=== PATIENT | male | born 1980 | race Caucasian/White ===

== ENCOUNTER 2019-02-18 16:20 | Emergency (ER) | payer OTHER, SELFPAY ==
[2019-02-18 16:24] VITALS: BP 152/86; PULSE 67; RESP 16; TEMP 36.8; O2SAT 97
--- NOTE | 2019-02-18 16:36 | W.ED.GENAD ---
Discharge Plan Disposition Patient Disposition: HOME Condition: Stable Discharge Details Chief Complaint: Laceration Clinical Impression: Laceration of left middle finger Primary Care Provider: None,None ED Provider: Chidi Ulloa Home Meds and New Rx's Prescriptions: No Action No Known Home Meds RF: 0 Discharge Instructions Instructions: Skin Adhesive Care (ED) Additional Instructions: if redness spreads down the finger or you have yellow/white discharge from the wound return to the emergency department Medical Decision Making 38 yo male comes in with left middle finger laceration. He was at work and accidentally cut his left middle finger with a knife, no falls or loc. He has an avulsion of the distal left anterior middle finger that is about 2cm long, no bone exposure. sensation intact with full rom. I placed a finger tourniquet on and cleaned the wound and was able to tac the skin avulsion down with skin adhesive. Will d/c, return precautions given Differential Diagnosis lac, avulsion HPI General Mode of arrival: ambulatory. Date/Time Provider Initiated Documentation: 02/18/19 16:21. Limitations to Documentation: no limitations. Information obtained by: patient. History of Present Illness 38 year old M presents to the emergency department with the chief complaint of left middle finger laceration, described as mild, Quality is described as aching, Patient started experiencing this hour(s) (1) and it has been constant. No relieving factors improve symptom(s), No exacerbating factors reported . Patient notes no other symptoms.. Patient did receive the following treatments prior to arrival, none Related Data Home Medications Medication Instructions Recorded Confirmed Unknown [No Known Home Meds] 06/01/13 06/01/13 Allergies Allergy/AdvReac Type Severity Reaction Status Date / Time No Known Allergies Allergy Unverified 06/01/13 15:54 General Stated Complaint: Laceration SCOOBY: 4 Review of Systems Review of Systems All systems reviewed & are unremarkable except as noted in HPI and below Constitutional Denies weakness Cardiovascular Denies chest pain and Denies dyspnea Respiratory Denies dyspnea Gastrointestinal Denies abdominal pain, Denies nausea and Denies vomiting Neurologic Denies weakness PFSH Social History Smoking/Tobacco Use Status: Former Tobacco Use Drug use: Never Do you feel safe at home: Yes Exam Const General: no acute distress Orientation: alert HENMT Head: normal to inspection Ears: external ears normal General nose exam: external nose normal Mouth: moist mucous membranes Eyes General: appearance normal, both eyes and all related structures Neck Neck: normal visual inspection Resp Effort & Inspection: normal respiratory effort and able to speak in complete sentences Cardio Rate: regular rate Skin General skin exam: no rashes or lesions noted Neuro General: alert and oriented x3 Extrem General: full ROM and normal capillary refill Psych Mental Status: mental status grossly normal Course Vital Signs Temperature 36.8 C 02/18/19 16:24 Pulse 67 02/18/19 16:24 Respiratory Rate 16 02/18/19 16:24 Blood Pressure 152/86 H 02/18/19 16:24 Pulse Oximetry 97 02/18/19 16:24 Temperature 36.8 C 02/18/19 16:24 Temperature Source Temporal Artery Scan 02/18/19 16:24 Pulse 67 02/18/19 16:24 Respiratory Rate 16 02/18/19 16:24 Respiratory Effort Non-Labored 02/18/19 16:30 Blood Pressure 152/86 H 02/18/19 16:24 Blood Pressure Position Supine 02/18/19 16:24 Pulse Oximetry 97 02/18/19 16:24 Oxygen Delivery Method Room Air 02/18/19 16:24 Oxygen Flow Rate 0 02/18/19 16:24 Procedures Laceration Laceration 1: Site: hand Side (If applicable): left Size (cm): 2 Description: linear Depth: simple, single layer Pre-repair: wound explored and irrigated extensively Skin layer closed with: other (skin adhesive)
--- NOTE | 2019-02-18 16:42 | NUR.NOTE ---
at bedside applying steri glue to affected site pt states he is utd with tetnus shot Nursing Note:
--- NOTE | 2019-02-18 16:43 | ED.GENADUL_ITS ---
Discharge Plan Disposition Patient Disposition: HOME Condition: Stable Discharge Details Chief Complaint: Laceration Clinical Impression: Laceration of left middle finger Primary Care Provider: None,None ED Provider: Chidi Ulloa Home Meds and New Rx's Prescriptions: No Action No Known Home Meds RF: 0 Discharge Instructions Instructions: Skin Adhesive Care (ED) Additional Instructions: if redness spreads down the finger or you have yellow/white discharge from the wound return to the emergency department Medical Decision Making 38 yo male comes in with left middle finger laceration. He was at work and accidentally cut his left middle finger with a knife, no falls or loc. He has an avulsion of the distal left anterior middle finger that is about 2cm long, no bone exposure. sensation intact with full rom. I placed a finger tourniquet on and cleaned the wound and was able to tac the skin avulsion down with skin adhes tonja. Will d/c, return precautions given Differential Diagnosis lac, avulsion HPI General Mode of arrival: ambulatory . Date/Time Provider Initiated Documentation: 02/18/19 16:21 . Limitations to Documentation: no limitations . Information obtained by: patient . History of Present Illness 38 year old M presents to the emergency department with the chief complaint of left middle finger laceration, described as mild, Quality is described as aching, Patient started experiencing this hour(s) (1) and it has been constant. No relieving factors improve symptom(s), No exacerbating factors reported . Patient notes no other symptoms.. Patient did receive the following treatments prior to arrival, none Related Data Home Medications Medication Instructions Recorded Confirmed Unknown [No Known Home Meds] 06/01/13 06/01/13 Allergies Allergy/AdvReac Type Severity Reaction Status Date / Time No Known Allergies Allergy Unverified 06/01/13 15:54 General Stated Complaint: Laceration SCOOBY: 4 Review of Systems Review of Systems All systems reviewed & are unremarkable except as noted in HPI and below Constitutional Denies weakness Cardiovascular Denies chest pain and Denies dyspnea Respiratory Denies dyspnea Gastrointestinal Denies abdominal pain, Denies nausea and Denies vomiting Neurologic Denies weakness PFSH Social History Smoking/Tobacco Use Status: Former Tobacco Use Drug use: Never Do you feel safe at home: Yes Exam Const General: no acute distress Orientation: alert HENMT Head: normal to inspection Ears: external ears normal General nose exam: external nose normal Mouth: moist mucous membranes Eyes General: appearance normal, both eyes and all related structures Neck Neck: normal visual inspection Resp Effort & Inspection: normal respiratory effort and able to speak in complete sentences Cardio Rate: regular rate Skin General skin exam: no rashes or lesions noted Neuro General: alert and oriented x3 Extrem General: full ROM and normal capillary refill Psych Mental Status: mental status grossly normal Course Vital Signs Temperature 36.8 C 02/18/19 16:24 Pulse 67 02/18/19 16:24 Respiratory Rate 16 02/18/19 16:24 Blood Pressure 152/86 H 02/18/19 16:24 Pulse Oximetry 97 02/18/19 16:24 Temperature 36.8 C 02/18/19 16:24 Temperature Source Temporal Artery Scan 02/18/19 16:24 Pulse 67 02/18/19 16:24 Respiratory Rate 16 02/18/19 16:24 Respiratory Effort Non-Labored 02/18/19 16:30 Blood Pressure 152/86 H 02/18/19 16:24 Blood Pressure Position Supine 02/18/19 16:24 Pulse Oximetry 97 02/18/19 16:24 Oxygen Delivery Method Room Air 02/18/19 16:24 Oxygen Flow Rate 0 02/18/19 16:24 Procedures Laceration Laceration 1: Site: hand Side (If applicable): left Size (cm): 2 Description: linear Depth: simple, single layer Pre-repair: wound explored and irrigated extensively Skin layer closed with: other (skin adhesive)
--- NOTE | 2019-02-18 16:52 | NUR.NOTE ---
dressing applied to affected area dc reviewed with able to verblize understanding ambulatory steady on dc dressing cdi Nursing Note:
== END 2019-02-18 16:49 | disposition home or self-care (01) ==
PROVIDERS: Emergency Provider Emergency Medicine
DX: S61.213A Laceration without foreign body of left middle finger without damage to nail, initial encounter (principal); W26.0XXA Contact with knife, initial encounter
CPT/HCPCS: 12001

== ENCOUNTER 2019-09-20 07:21 | Emergency (ER) | payer MEDICAID, SELFPAY ==
[2019-09-20 07:24] VITALS: BP 166/93; PULSE 88; TEMP 36.5; O2SAT 99
--- NOTE | 2019-09-20 07:34 | ED.GENADUL_ITS ---
Discharge Plan Disposition Patient Disposition: HOME Condition: Good Discharge Details Chief Complaint: DentalOral Clinical Impression: Dental infection Primary Care Provider: None,None ED Provider: Constantin Ortega Meds and New Rx's Prescriptions: New hydrocodone-acetaminophen 5-300 mg tablet 1 tab PO Q6H PRN (Reason: pain) Qty: 10 RF: 0 Continued clindamycin HCl 150 mg Capsule 150 mg PO Q6H RF: 0 Discharge Instructions Additional Instructions: Continue antibiotic and hopefully the pain decreases as the infection clears. Call the dental groups that you were given yesterday to arrange for follow-up. May take ibuprofen when using the hydrocodone/acetaminophen but do not take extra acetaminophen or Tylenol while using. Return to ED for difficulty breathing, inability to swallow, increasing facial swelling or erythema. Medical Decision Making Unable to get patient into oral surgery any quicker. He was given a list of various surgeons and dental clinics to follow-up with yesterday by dentistry. He is on clindamycin. Can offer day or 2 of [place] until the antibiotics have had time to help with the infection and thus his pain. Beyond that nothing else that I can offer. He does not have any fluctuance, difficulty breathing, inability to swallow, significant facial erythema or edema. [place] prescription database reviewed and patient has no prescriptions in the last year. Informed consent and State information sheet given. HPI General Mode of arrival: ambulatory . Date/Time Provider Initiated Documentation: 09/20/19 07:34 . Limitations to Documentation: no limitations . Information obtained by: patient and RN notes reviewed . HPI Narrative: Patient presents to ED with continued dental pain. He has been seen by dentistry yesterday and started on clindamycin. He has been referred to oral surgery. He has been taking Tylenol, Motrin and using Orajel but the pain continues. He does admit that it is a little better after day of antibiotics. Pain is mostly left sided with radiation up toward the ear. Some pain in the lower jaw as well. He has no difficulty breathing. He is on able to eat well because of pain in his teeth but has no difficulty swallowing. He came here hoping we would be able to get him into an oral surgeon quicker. Related Data Home Medications Medication Instructions Recorded Confirmed clindamycin HCl 150 mg PO Q6H 09/20/19 09/20/19 hydrocodone-acetaminophen 1 tab PO Q6H PRN #10 tab 09/20/19 Previous Rx's Medication Instructions Recorded hydrocodone-acetaminophen 1 tab PO Q6H PRN #10 tab 09/20/19 Allergies Allergy/AdvReac Type Severity Reaction Status Date / Time No Known Allergies Allergy Unverified 09/20/19 07:28 General Stated Complaint: DentalOral SCOOBY: 4 Review of Systems Constitutional Constitutional: Denies fever(s) ENT Ears, Nose, Mouth, and Throat: Reports dental pain, Denies dysphagia, Denies throat swelling and Denies tongue swelling Gastrointestinal Gastrointestinal: Denies dysphagia Allergic/Immunologic Allergic/Immunologic: Denies throat swelling and Denies tongue swelling PFSH Medical History No active medical problems (Acute) Surgical History S/P appendectomy (Acute) Status post open reduction with internal fixation of fracture (Acute) right tibia Social History Smoking/Tobacco Use Status: Former Tobacco Use Alcohol Intake: former Drug use: Daily Substance use type: marijuana Do you feel safe at home: Yes Exam Const General: cooperative, comfortable and no acute distress Orientation: alert and oriented x3 HENMT Head: normal to inspection, normocephalic and atraumatic Ears: external ears normal and TM's normal bilaterally Face and sinus: normal facial exam, face symmetric, no crepitus and no erythema Mouth: lip normal and tongue normal Teeth and gingiva: poor dentition and other (Multiple decayed and broken teeth throughout. No obvious gingival abscess.) Course Vital Signs Vital signs: Vital Signs Temperature 97.7 F 09/20/19 07:24 Pulse 88 09/20/19 07:24 Blood Pressure 166/93 H 09/20/19 07:24 Pulse Oximetry 99 09/20/19 07:24 Temperature 97.7 F 09/20/19 07:24 Temperature Source Temporal Artery Scan 09/20/19 07:24 Pulse 88 09/20/19 07:24 Respiratory Effort Non-Labored 09/20/19 07:30 Blood Pressure 166/93 H 09/20/19 07:24 Blood Pressure Position Sitting 09/20/19 07:24 Pulse Oximetry 99 09/20/19 07:24 Oxygen Delivery Method Room Air 09/20/19 07:24 Oxygen Flow Rate 0 09/20/19 07:24 Pain Level 0 09/20/19 07:24 Comment 09/20/19 07:24
[2019-09-20 08:13] VITALS: BP 166/93; PULSE 88; TEMP 36.5; O2SAT 99
== END 2019-09-20 08:11 | disposition home or self-care (01) ==
PROVIDERS: Emergency Provider Emergency Medicine
DX: R68.84 Jaw pain (principal); K04.7 Periapical abscess without sinus
CPT/HCPCS: 99283

== ENCOUNTER 2022-12-01 17:57 | Outpatient (REF) | payer MEDICAID, SELFPAY ==
[2022-12-01 21:42] LABS: Abs Immature Grans 0.02 10^3/uL (0.0-0.06); Absolute Basophil Count 0.01 10^3/uL (0.0-0.2); Absolute Lymphocyte Count 1.63 10^3/uL (1.2-3.4); Absolute Monocyte Count 0.71 10^3/uL (0.1-0.8); Absolute Neutrophil Count 4.02 10^3/uL (1.2-6.7); Basophils % 0.2; Eosinophils % 1.5; HCT 40.8 % (40.0-50.0); Immature Grans % 0.3; Lymphocytes % 25.1; MCH 30.2 pg (27.0-33.0); MCHC 34.3 % (32.0-36.0); MCV 88 fL (80-95); MPV 9.2 fL (8.0-11.0); Monocytes % 10.9; Platelet Count 314 10^3/uL (130-400); RBC 4.63 10^6/uL (4.36-5.78); RDW 13.5 % (11.8-14.1); RDW-SD 43.8 fL; WBC 6.49 10^3/uL (4.4-10.8)
[2022-12-01 21:53] LABS: ESR 24 mm/hr (0-15)
[2022-12-01 22:00] LABS: ALT 16 U/L (16-63); AST 12 U/L (15-37); Albumin 3.7 g/dL (3.4-5.0); Alkaline Phosphatase 101 U/L (46-116); Anion Gap 9.1 mmol/L (3-11); BUN 8 mg/dL (7-18); Bilirubin, Total 0.3 mg/dL (0.2-1.0); C-Reactive Protein 3.64 mg/dL (0.0-0.3); CO2 27.9 mmol/L (21.0-32.0); CREATININE 0.7 mg/dL (0.70-1.30); Chloride 102 mmol/L (98-107); Estimated GFR 116.52 (mL/min/1.73m2); Glucose 93 mg/dL (74-106); Potassium 3.9 mmol/L (3.5-5.1); Sodium 139 mmol/L (136-145); TSH (W/Ref FT4) 1.04 uIU/mL (0.36-3.74); Total Protein 7.4 g/dL (6.4-8.2)
[2022-12-02 20:00] LABS: Rheumatoid Factor 44.1 IU/mL (<12.0)
[2022-12-05 11:32] LABS: Lyme Ab w Rflx to Lyme Confirm Negative (Negative)
[2022-12-05 14:01] LABS: ANA Interpretation Negative (Negative)
== END 2022-12-01 17:58 | disposition home or self-care (01) ==
LOC: NCHCN 17:57
PROVIDERS: Visit Provider Physician Assistant Medical
DX: M06.4 Inflammatory polyarthropathy (principal); M25.59 Pain in other specified joint; R68.89 Other general symptoms and signs; R70.0 Elevated erythrocyte sedimentation rate; R79.82 Elevated C-reactive protein (CRP)
CPT/HCPCS: 80053; 85652; 84443; 85025; 86038; 86140; 86431; 86618